=== PATIENT | male | born 1995 | race African-American/Black ===

== ENCOUNTER 2017-09-25 18:25 | Inpatient (IN) | payer OTHER ==
[2017-09-25] MEDS ORDERED: DIPHTH/TETANUS/ACEL PERTUSSIS (BOOSTER) 0.5 ML VIAL/PFS IM ONE (18:32)
[2017-09-25] MEDS ORDERED: ceFAZolin 2 GM PREMIX 50 ML ONE (18:33)
[2017-09-25] MEDS ORDERED: PROPOFOL 1000 MG/100 ML INJ 100 ML ONE (18:36)
[2017-09-25 18:37] VITALS: O2SAT 100
[2017-09-25] MEDS ORDERED: ROCURONIUM INJ 50 MG/5 ML VIAL ONE (18:45)
[2017-09-25 18:51] LABS: AUTOMATED NEUTROPHIL # 13.8 TH/MM3 (1.8-7.7); BASOPHIL % 0.3 % (0.0-2.0); EOSINOPHIL % 0.3 % (0.0-4.0); HEMATOCRIT 43.5 % (39.0-51.0); LYMPH % 13.4 % (9.0-44.0); LYMPHOCYTE # 2.3 TH/MM3 (1.0-4.8); MEAN CELL VOLUME 85.8 FL (80.0-100.0); MEAN CORPUSCULAR HEMOGLOBIN 29.5 PG (27.0-34.0); MEAN CORPUSCULAR HGB CONC 34.4 % (32.0-36.0); MEAN PLATELET VOLUME 8.1 FL (7.0-11.0); MONO % 4.2 % (0.0-8.0); MONOCYTE # 0.7 TH/MM3 (0-0.9); NEUT % 81.8 % (16.0-70.0); PLATELET COUNT 228 TH/MM3 (150-450); RED BLOOD COUNT 5.07 MIL/MM3 (4.50-5.90); RED CELL DISTRIBUTION WIDTH 13.5 % (11.6-17.2); WHITE BLOOD COUNT 16.9 TH/MM3 (4.0-11.0)
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
[2017-09-25] MEDS ORDERED: fentaNYL DRIP 250 ML IV PRN (19:00)
[2017-09-25] MEDS ORDERED: MAGNESIUM HYDROXIDE SUSP 30 ML CUP PO PRN (19:00)
[2017-09-25] MEDS ORDERED: MISCELLANEOUS NURSING INFORMATION XX SCH (19:00)
[2017-09-25] MEDS ORDERED: ONDANSETRON HCL 4 MG/2 ML VIAL IV PUSH PRN (19:00)
[2017-09-25] MEDS ORDERED: CHLORHEXIDINE GLUCONATE 2 % 1 PACK (2 CLOTHS) TOP PRN (19:00)
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
[2017-09-25 19:07] LABS: INTERNATIONAL NORMALIZED RATIO 1.1 RATIO; PROTHROMBIN TIME - PATIENT 11.6 SEC (9.8-11.6)
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
[2017-09-25] MEDS ORDERED: IOHEXOL 350 MG/ML 10 ML VIAL (for RAD DIAG) IVCONTRAST ONE (19:09)
[2017-09-25] MEDS ORDERED: hydrALAZINE HCL 20 MG/ML VIAL ONE (19:19)
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
[2017-09-25 19:30] VITALS: BP 139/63; PULSE 100; RESP 16; TEMP 98.7; O2SAT 100
[2017-09-25] MEDS: SODIUM CHLOR 0.9% 1000 ML INJ 1,000 ML IV SCH (19:30)
[2017-09-25] MEDS: PROPOFOL 1000 MG/100 ML INJ 100 ML IV PRN (19:45)
[2017-09-25 20:00] VITALS: BP 139/63; PULSE 94; RESP 16; TEMP 98.6; O2SAT 100
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
[2017-09-25] MEDS ORDERED: NOREPINEPHRINE 4 MG/4 ML AMP ONE (20:38)
[2017-09-25] MEDS ORDERED: MIDAZOLAM HCL 5 MG/ML VIAL (1 ML) ONE ×2 (21:00→23:19)
[2017-09-25] MEDS ORDERED: NOREPINEPHRINE INJ 4 MG in SODIUM CHLOR 0.9% 250 ML INJ 246 ML IV PRN (21:00)
[2017-09-25] MEDS: DOCUSATE SODIUM 100 MG CAP PO SCH (21:00)
[2017-09-25] MEDS: fentaNYL DRIP 250 ML IV PRN (21:00)
[2017-09-25] MEDS ORDERED: MIDAZOLAM HCL 2 MG/2 ML VIAL IV PUSH ONE (21:00)
[2017-09-25] MEDS ORDERED: TERBUTALINE INJ 1 MG/ML AMP SQ PRN (21:00)
[2017-09-25 21:50] VITALS: O2SAT 100
[2017-09-25 22:00] VITALS: PULSE 85
[2017-09-25] MEDS: levETIRAcetam INJ 500 MG in SODIUM CHLORIDE 0.9% INJ 100 ML IV SCH (22:00)
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
--- NOTE | 2017-09-25 22:25 | RADRPT ---
EXAM DATE/TIME: 09/25/2017 21:49 [facility] COMPARISON: CHEST SINGLE AP, September 25, 2017, 18:33. INDICATIONS : Central line placement MEDICAL HISTORY : None. SURGICAL HISTORY : None. ENCOUNTER: Initial ACUITY: 1 day PAIN SCORE: Non-responsive. LOCATION: Bilateral chest. FINDINGS: Endotracheal tube tip at level the clavicles. Left subclavian line tip overlies the SVC. Enteric tube courses beneath the diaphragm. Tubing and EKG leads overlie the chest. There is a moderate right-ernestina ed pneumothorax extending from base to apex. At the right lung base there is a 1.4 cm of pleural sepa ration and at the right apex approximately 2.5 cm. There is right lower lobe atelectasis. The heart s ize is normal. I do not see a definite pneumothorax on the left. There is consolidation in the left l loretta base. CONCLUSION: Right-sided pneumothorax. Sim Austin MD on September 25, 2017 at 22:22 Board Certified Radiologist. This report was verified electronically.
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
[2017-09-25] MEDS ORDERED: LIDOCAINE 1%/EPINEPHrine 1:100,000 SOLN 30 ML VIAL ONE (23:15)
--- NOTE | 2017-09-25 23:36 | PD.PROCEDR ---
Procedure Note Procedure Procedure: Right chest tube placement Indication: Acute right pneumothorax Details of procedure: Informed consent was obtained from the patient's father after discussion of risks, benefits, alternatives. The patient was positioned with right arm secured in restraint away from sterile field. The lateral chest wall was cleaned with ChloraPrep x4. Regional sterile drapes were applied. 1% lidocaine with epi was used for local anesthesia and injected into the subcutaneous and deep muscle tissues. A 1.5 cm skin incision was made with a scalpel blade. A hemostat was used for blunt dissection. The hemostat was entered into the pleural space superior to the rib with release of air. I explored the wound with my finger. A size 20 Nauruan chest tube was inserted with a Hallie clamp into the pleural cavity with intended direction toward the apex to a depth of 14 cm. 2-0 silk was used to close the wound and to secure the chest tube. A sterile Vaseline gauze dressing was applied. The chest tube was connected to a Pleur-evac drainage system. There was a persistent 2-3+ air leak. There was minimal serosanguineous fluid in the chest tube. Estimated blood loss: < 5mL Complications: None. Stat chest x-ray demonstrates improvement in size of R pneumothorax Dana Bailey MD Sep 25, 2017 23:36
[2017-09-26] VITALS (19 sets, daily range): BP systolic 124–139; BP diastolic 58–68; PULSE 60–80; RESP 16–29; TEMP 98.4–100; O2SAT 95–100
--- NOTE | 2017-09-26 00:04 | RADRPT ---
EXAM DATE/TIME: 09/25/2017 23:46 [facility] COMPARISON: CT THORAX W CONTRAST, September 25, 2017, 19:01. CHEST SINGLE AP, September 25, 2017, 21:49. INDICATIONS : Right sided pneumothorax. MEDICAL HISTORY : None. SURGICAL HISTORY : None. ENCOUNTER: Initial ACUITY: 1 day PAIN SCORE: Non-responsive. LOCATION: Bilateral chest FINDINGS: Interval placement of right chest drainage tube with tip projected in the medial right chest. There has been reduction in the size of the apical pneumothorax to 1.7 cm (previously measured 2.5 cm). Th e lungs are symmetrically aerated without focal infiltrate. ET tube tip well above the braden. Phillip yakov tube traverses the field of view. Left subclavian catheter tip projects over the mid superior ve na cava. The stable fracture midshaft right clavicle. CONCLUSION: Interval placement of right chest drainage tube with reduction in size of right apical pneumothorax 1 .7 cm. Norm Marvin MD on September 26, 2017 at 0:01 Board Certified Radiologist. This report was verified electronically.
[2017-09-26 00:55] LABS: AMORPHOUS SEDIMENT, URINE MOD; BILIRUBIN, URINE NEG (NEG); BLOOD, URINE TRACE (NEG); GLUCOSE,URINE NEG (NEG); KETONE, URINE NEG (NEG); MUCUS URINE FEW /lpf (OCC); NITRITE,URINE NEG (NEG); SQUAMOUS EPITHELIAL CELL URINE <1 /hpf (0-5); URINE COLOR YELLOW (YELLW/STRAW); URINE LEUKOCYTE ESTERASE NEG (NEG)
[2017-09-26] MEDS ORDERED: SODIUM CHLOR 0.9% 1000 ML INJ 2,000 ML IV ONE (03:00)
[2017-09-26] MEDS: PROPOFOL 1000 MG/100 ML INJ 100 ML IV PRN ×3 (03:41→19:43)
[2017-09-26] MEDS: CHLORHEXIDINE GLUCONATE 2 % 1 PACK (2 CLOTHS) TOP SCH (04:00)
[2017-09-26 04:15] LABS: BASOPHIL % 0.3 % (0.0-2.0); HEMATOCRIT 33.6 % (39.0-51.0); HEMOGLOBIN 11.6 GM/DL (13.0-17.0); LYMPH % 10.5 % (9.0-44.0); LYMPHOCYTE # 1.1 TH/MM3 (1.0-4.8); MEAN CORPUSCULAR HEMOGLOBIN 29.3 PG (27.0-34.0); MEAN CORPUSCULAR HGB CONC 34.4 % (32.0-36.0); MEAN PLATELET VOLUME 7.7 FL (7.0-11.0); MONO % 5.4 % (0.0-8.0); MONOCYTE # 0.6 TH/MM3 (0-0.9); NEUT % 83.8 % (16.0-70.0); PLATELET COUNT 161 TH/MM3 (150-450); RED BLOOD COUNT 3.95 MIL/MM3 (4.50-5.90); RED CELL DISTRIBUTION WIDTH 13.2 % (11.6-17.2); WHITE BLOOD COUNT 10.7 TH/MM3 (4.0-11.0)
[2017-09-26 04:37] LABS: BICARBONATE 23.6 MEQ/L (21.0-32.0); CALCIUM 8.2 MG/DL (8.5-10.1); CREATININE 0.86 MG/DL (0.60-1.30)
[2017-09-26] MEDS: SODIUM CHLOR 0.9% 1000 ML INJ 1,000 ML IV SCH ×3 (05:45→21:11)
--- NOTE | 2017-09-26 05:58 | RADRPT ---
EXAM DATE/TIME: 09/26/2017 04:01 [facility] COMPARISON: CHEST SINGLE AP, September 25, 2017, 23:46. INDICATIONS : Respiratory failure, and right sided pneumothorax. MEDICAL HISTORY : None. SURGICAL HISTORY : None. ENCOUNTER: Subsequent ACUITY: 2 days PAIN SCORE: Non-responsive. LOCATION: Bilateral chest FINDINGS: Right chest drainage tube is projected in the medial right mid chest. There are absent lung markings at the right apex, but no definite pleural reflection is identified; this could be due to the supine nature of the film. A residual apical pneumothorax is suspected, but cannot be measured. Patchy il l-defined areas of opacity in the lateral left lung stable in appearance. ET tube and gastric tube u nchanged. CONCLUSION: Absent lung markings at the right apex without definite pleural reflection. A residual pneumothorax is suspected, but cannot be measured. May consider performing an erect view of the chest 4 further e valuation. Norm Marvin MD on September 26, 2017 at 5:55 Board Certified Radiologist. This report was verified electronically.
--- NOTE | 2017-09-26 06:02 | RADRPT ---
EXAM DATE/TIME: 09/26/2017 05:06 [facility] COMPARISON: CT BRAIN W/O CONTRAST, September 25, 2017, 18:55. INDICATIONS : Follow up hemorrhage. RADIATION DOSE: 69.15 CTDIvol (mGy) MEDICAL HISTORY : None SURGICAL HISTORY : None. ENCOUNTER: Subsequent ACUITY: 1 day PAIN SCALE: Non-responsive LOCATION: cranial TECHNIQUE: Multiple contiguous axial images were obtained of the head. Using automated exposure control and adj ustment of the mA and/or kV according to patient size, radiation dose was kept as low as reasonably a chievable to obtain optimal diagnostic quality images. DICOM format image data is available electro nically for review and comparison. FINDINGS: CEREBRUM: Interval placement of a intracranial monitoring electrode with the tip in the mid convexity frontal r egion. There is a collection of extra-axial gas in the nondependent frontal region measuring 7 mm. The 3 punctate hemorrhages in the left frontal white matter are stable in size and appearance when co mpared to yesterday's exam. The largest hemorrhage measures 7 mm. No new hemorrhages seen. The chele tricles are symmetric in size. There is good banerjee-white matter differentiation. No evidence of midl ine shift. POSTERIOR FOSSA: The cerebellum and brainstem are intact. The 4th ventricle is midline. The cerebellopontine angle i s unremarkable. EXTRACRANIAL: The visualized portion of the orbits is intact. SKULL: The calvaria is intact. No evidence of skull fracture. CONCLUSION: 1. The 3 left frontal hemorrhages are stable in size, measuring up to 7 mm. 2. Interval development of pneumocephalus in the non-dependent right frontal extra-axial space probab ly related to interval placement of right ICP device. Norm Marvin MD on September 26, 2017 at 5:58 Board Certified Radiologist. This report was verified electronically.
[2017-09-26] MEDS ORDERED: RESP: ALBUTEROL 2.5 MG/IPRATROPIUM 0.5 MG NEB (PRN) NEB (07:30)
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
[2017-09-26] MEDS: CHLORHEXIDINE 0.12% (ORAL KIT) 15 ML CUP MT SCH ×2 (08:06→21:10)
[2017-09-26] MEDS: DOCUSATE SODIUM 100 MG CAP PO SCH ×2 (08:07→21:08)
[2017-09-26] MEDS: levETIRAcetam INJ 500 MG in SODIUM CHLORIDE 0.9% INJ 100 ML IV SCH ×2 (08:07→21:10)
[2017-09-26] MEDS: FAMOTIDINE 20 MG TAB PO SCH ×2 (08:07→21:08)
[2017-09-26] MEDS ORDERED: RESP: ALBUTEROL 2.5 MG/IPRATROPIUM 0.5 MG NEB (SCH) NEB (10:00)
[2017-09-26] MEDS ORDERED: POTASSIUM CHLOR 40 MEQ PREMIX 100 ML IV PRN (10:30)
[2017-09-26] MEDS ORDERED: MAGNESIUM OXIDE 400 MG TAB PO PRN (10:30)
[2017-09-26] MEDS ORDERED: POTASSIUM CHLOR 20 MEQ PREMIX 100 ML IV PRN ×2 (10:30)
[2017-09-26] MEDS ORDERED: POTASSIUM PHOSPHATE INJ 30 MMOL in SODIUM CHLOR 0.9% 250 ML INJ 250 ML IV PRN (10:30)
[2017-09-26] MEDS ORDERED: POTASSIUM PHOSPHATE MONOBASIC 500 MG TAB PO/TUBE PRN (10:30)
[2017-09-26] MEDS ORDERED: POTASSIUM CHLORIDE 25 MEQ EFFERVESCENT TAB PO PRN (10:30)
[2017-09-26] MEDS ORDERED: GLUCAGON 1 MG/ML VIAL OTHER PRN (10:30)
[2017-09-26] MEDS: INSULIN ASPART SUPPLEMENTAL SCALE SQ SCH ×3 (10:30→22:30)
[2017-09-26] MEDS ORDERED: MAGNESIUM SULFATE INJ 4 GM in SODIUM CHLORIDE 0.9% INJ 92 ML IV PRN (10:30)
[2017-09-26] MEDS ORDERED: POTASSIUM PHOSPHATE MONOBASIC 500 MG TAB PO PRN (10:30)
[2017-09-26] MEDS ORDERED: SODIUM PHOSPHATE INJ 30 MMOL in SODIUM CHLOR 0.9% 250 ML INJ 240 ML IV PRN (10:30)
[2017-09-26] MEDS ORDERED: DEXTROSE 50% IN WATER 50 ML VIAL(D50) IV PUSH PRN (10:30)
[2017-09-26] MEDS ORDERED: MAGNESIUM SULFATE INJ 2 GM in SODIUM CHLORIDE 0.9% INJ 96 ML IV PRN (10:30)
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
[2017-09-26] MEDS: RESP: ALBUTEROL 2.5 MG/IPRATROPIUM 0.5 MG NEB (SCH) NEB ×2 (14:24→20:35)
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
--- NOTE | 2017-09-26 15:04 | RADRPT ---
EXAM DATE/TIME: 09/26/2017 14:19 [facility] COMPARISON: CHEST SINGLE AP, September 26, 2017, 4:01. INDICATIONS : Concern for atelectasis. MEDICAL HISTORY : None. SURGICAL HISTORY : None. ENCOUNTER: Initial ACUITY: 1 day PAIN SCORE: Non-responsive. LOCATION: Bilateral chest FINDINGS: There is atelectasis in the right lower lobe. Left subclavian line tip overlies the SVC. Endotracheal tube tip at the level of the clavicles. Right-sided chest tube is present. Enteric tube courses bene ath the diaphragm. There is a right-sided pneumothorax. CONCLUSION: Right-sided pneumothorax. Right basilar atelectasis. Sim Austin MD on September 26, 2017 at 14:58 Board Certified Radiologist. This report was verified electronically.
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
[2017-09-26] MEDS: fentaNYL DRIP 250 ML IV PRN (20:18)
[2017-09-26] MEDS: ACETAMINOPHEN 325 MG TAB PO PRN (23:25)
[2017-09-27] VITALS (21 sets, daily range): BP systolic 111–140; BP diastolic 52–65; PULSE 78–115; RESP 16–18; TEMP 99.3–101.7; O2SAT 92–100
[2017-09-27] MEDS: POTASSIUM CHLOR 40 MEQ PREMIX 100 ML IV PRN ×2 (00:25→02:30)
[2017-09-27] MEDS: PROPOFOL 1000 MG/100 ML INJ 100 ML IV PRN ×4 (01:20→15:33)
[2017-09-27] MEDS: CHLORHEXIDINE GLUCONATE 2 % 1 PACK (2 CLOTHS) TOP SCH (03:03)
[2017-09-27] MEDS: RESP: ALBUTEROL 2.5 MG/IPRATROPIUM 0.5 MG NEB (SCH) NEB ×4 (03:21→19:52)
[2017-09-27 04:30] LABS: AUTOMATED NEUTROPHIL # 8.9 TH/MM3 (1.8-7.7); BASOPHIL % 0.4 % (0.0-2.0); EOSINOPHIL # 0.1 TH/MM3 (0-0.4); EOSINOPHIL % 0.8 % (0.0-4.0); HEMATOCRIT 32.6 % (39.0-51.0); HEMOGLOBIN 11.3 GM/DL (13.0-17.0); LYMPH % 8.3 % (9.0-44.0); LYMPHOCYTE # 0.9 TH/MM3 (1.0-4.8); MEAN CELL VOLUME 84.4 FL (80.0-100.0); MEAN CORPUSCULAR HEMOGLOBIN 29.3 PG (27.0-34.0); MEAN CORPUSCULAR HGB CONC 34.8 % (32.0-36.0); MEAN PLATELET VOLUME 7.9 FL (7.0-11.0); MONO % 4.5 % (0.0-8.0); MONOCYTE # 0.5 TH/MM3 (0-0.9); PLATELET COUNT 138 TH/MM3 (150-450); RED BLOOD COUNT 3.87 MIL/MM3 (4.50-5.90); RED CELL DISTRIBUTION WIDTH 13.2 % (11.6-17.2); WHITE BLOOD COUNT 10.4 TH/MM3 (4.0-11.0)
[2017-09-27] MEDS: INSULIN ASPART SUPPLEMENTAL SCALE SQ SCH ×4 (04:30→22:30)
[2017-09-27 05:00] LABS: ALBUMIN 2.9 GM/DL (3.4-5.0); AST (GOT) 44 U/L (15-37); BICARBONATE 22.1 MEQ/L (21.0-32.0); BLOOD UREA NITROGEN 7 MG/DL (7-18); CALCIUM 7.8 MG/DL (8.5-10.1); CHLORIDE 109 MEQ/L (98-107); CREATININE 0.87 MG/DL (0.60-1.30); GLOMERULAR FILTRATION RATE 133 ML/MIN (>89); GLUCOSE,RANDOM 87 MG/DL (74-106); MAGNESIUM 1.4 MG/DL (1.5-2.5); SODIUM (NA) 140 MEQ/L (136-145)
[2017-09-27 05:02] LABS: ALT (GPT) 25 U/L (12-78)
[2017-09-27 05:03] LABS: ALKALINE PHOSPHATASE 92 U/L (45-117); TOTAL BILIRUBIN ADULT 0.8 MG/DL (0.2-1.0); TOTAL PROTEIN 6.3 GM/DL (6.4-8.2)
[2017-09-27] MEDS ORDERED: Vancomycin Consult Pharmacy 1 EA OTHER SCH (05:30)
--- NOTE | 2017-09-27 05:36 | RADRPT ---
EXAM DATE/TIME: 09/27/2017 04:43 [facility] COMPARISON: CT THORAX W CONTRAST, September 25, 2017, 19:01. CHEST SINGLE AP, September 26, 2017, 4:01. CHEST SINGLE AP , September 26, 2017, 14:19. INDICATIONS : Short of breath, follow up right side pneumothorax MEDICAL HISTORY : pneumothorax, brain hemorrhage SURGICAL HISTORY : None. ENCOUNTER: Subsequent ACUITY: 2 days PAIN SCORE: Non-responsive. LOCATION: Bilateral chest FINDINGS: Portable AP view of the chest demonstrates a normal-sized cardiac silhouette. Nasogastric tube, ETT, and left subclavian central line remain present. Right chest tube is present. No right pneumothorax i s visualized. There is airspace consolidation in the right lower lung zone, increased from the prior study. CONCLUSION: 1. No pneumothorax is visualized. 2. Increased right lower lung zone airspace consolidation. Gamaliel Henry MD on September 27, 2017 at 5:33 Board Certified Radiologist. This report was verified electronically.
[2017-09-27] MEDS: SODIUM CHLOR 0.9% 1000 ML INJ 1,000 ML IV SCH ×3 (05:45→21:34)
[2017-09-27] MEDS: PIPERACIL-TAZO 4.5 GM PREMIX 100 ML IV SCH ×3 (06:09→17:51)
[2017-09-27] MEDS ORDERED: VANCOMYCIN 1,500 MG/NS 500 ML IV ONE ×2 (08:00)
[2017-09-27] MEDS: CHLORHEXIDINE 0.12% (ORAL KIT) 15 ML CUP MT SCH ×2 (08:00→21:34)
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
[2017-09-27] MEDS: levETIRAcetam INJ 500 MG in SODIUM CHLORIDE 0.9% INJ 100 ML IV SCH ×2 (09:05→21:34)
[2017-09-27] MEDS: DOCUSATE SODIUM 100 MG CAP PO SCH ×2 (09:08→21:34)
[2017-09-27] MEDS: FAMOTIDINE 20 MG TAB PO SCH ×2 (09:08→21:34)
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
[2017-09-27] MEDS ORDERED: ROCURONIUM INJ 50 MG/5 ML VIAL ONE (11:11)
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
[2017-09-27 13:59] LABS: BILIRUBIN, URINE NEG (NEG); BLOOD, URINE NEG (NEG); GLUCOSE,URINE NEG (NEG); KETONE, URINE NEG (NEG); MUCUS URINE FEW /lpf (OCC); NITRITE,URINE NEG (NEG); URINE COLOR LIGHT-YELLOW (YELLW/STRAW); URINE LEUKOCYTE ESTERASE NEG (NEG)
[2017-09-27] MEDS: fentaNYL DRIP 250 ML IV PRN (17:00)
[2017-09-27] MEDS: ACETAMINOPHEN 325 MG TAB PO PRN (17:51)
[2017-09-27] MEDS: VANCOMYCIN INJ 1,500 MG in SODIUM CHLORID 0.9% 500 ML INJ 500 ML IV SCH (23:20)
[2017-09-28] VITALS (18 sets, daily range): BP systolic 102–134; BP diastolic 53–67; PULSE 70–98; RESP 12–16; TEMP 99.3–100.2; O2SAT 94–100
[2017-09-28] MEDS: PIPERACIL-TAZO 4.5 GM PREMIX 100 ML IV SCH ×4 (01:08→17:34)
[2017-09-28] MEDS: SODIUM CHLOR 0.9% 1000 ML INJ 1,000 ML IV SCH (03:00)
[2017-09-28] MEDS: RESP: ALBUTEROL 2.5 MG/IPRATROPIUM 0.5 MG NEB (SCH) NEB ×4 (03:29→21:22)
[2017-09-28] MEDS: CHLORHEXIDINE GLUCONATE 2 % 1 PACK (2 CLOTHS) TOP SCH (03:58)
[2017-09-28] MEDS: PROPOFOL 1000 MG/100 ML INJ 100 ML IV PRN (04:05)
[2017-09-28] MEDS: INSULIN ASPART SUPPLEMENTAL SCALE SQ SCH ×4 (04:30→22:30)
[2017-09-28 04:31] LABS: AUTOMATED NEUTROPHIL # 11.2 TH/MM3 (1.8-7.7); BASOPHIL # 0.1 TH/MM3 (0-0.2); BASOPHIL % 0.5 % (0.0-2.0); EOSINOPHIL # 0.3 TH/MM3 (0-0.4); EOSINOPHIL % 2.3 % (0.0-4.0); HEMATOCRIT 29.4 % (39.0-51.0); HEMOGLOBIN 10.1 GM/DL (13.0-17.0); LYMPH % 6.2 % (9.0-44.0); LYMPHOCYTE # 0.8 TH/MM3 (1.0-4.8); MEAN CELL VOLUME 84.8 FL (80.0-100.0); MEAN CORPUSCULAR HEMOGLOBIN 29.2 PG (27.0-34.0); MEAN CORPUSCULAR HGB CONC 34.4 % (32.0-36.0); MEAN PLATELET VOLUME 8.3 FL (7.0-11.0); MONO % 3.7 % (0.0-8.0); MONOCYTE # 0.5 TH/MM3 (0-0.9); NEUT % 87.3 % (16.0-70.0); PLATELET COUNT 131 TH/MM3 (150-450); RED BLOOD COUNT 3.46 MIL/MM3 (4.50-5.90); RED CELL DISTRIBUTION WIDTH 13.1 % (11.6-17.2); WHITE BLOOD COUNT 12.8 TH/MM3 (4.0-11.0)
[2017-09-28 04:47] LABS: ALBUMIN 2.4 GM/DL (3.4-5.0); ALT (GPT) 23 U/L (12-78); AST (GOT) 52 U/L (15-37); BICARBONATE 26.6 MEQ/L (21.0-32.0); BLOOD UREA NITROGEN 8 MG/DL (7-18); CALCIUM 7.9 MG/DL (8.5-10.1); CHLORIDE 110 MEQ/L (98-107); CREATININE 0.89 MG/DL (0.60-1.30); GLOMERULAR FILTRATION RATE 130 ML/MIN (>89); GLUCOSE,RANDOM 92 MG/DL (74-106); SODIUM (NA) 142 MEQ/L (136-145)
[2017-09-28 04:48] LABS: ALKALINE PHOSPHATASE 82 U/L (45-117); TOTAL BILIRUBIN ADULT 1.1 MG/DL (0.2-1.0); TOTAL PROTEIN 6.1 GM/DL (6.4-8.2)
--- NOTE | 2017-09-28 05:06 | RADRPT ---
EXAM DATE/TIME: 09/28/2017 03:47 [facility] COMPARISON: CHEST SINGLE AP, September 26, 2017, 14:19. CHEST SINGLE AP, September 27, 2017, 4:43. INDICATIONS : Short of breath. MEDICAL HISTORY : pneumothorax, brain hemorrhage. SURGICAL HISTORY : None. ENCOUNTER: Subsequent ACUITY: 3 days PAIN SCORE: Non-responsive. LOCATION: Bilateral chest FINDINGS: Portable AP view of the chest demonstrates a normal-sized cardiac silhouette. ETT, left subclavian ce ntral line, and nasogastric tube remain present. EKG lines overlie the patient. Right chest tube lora ins present. There is airspace consolidation in the right lower lung zone, improved from the prior ex am. A tiny right apical pneumothorax is visualized. Left lung demonstrates no acute finding. CONCLUSION: 1. A tiny right apical pneumothorax is visualized. 2. Improvement in the right lower lung zone airspace consolidation. Gamaliel Henry MD on September 28, 2017 at 5:03 Board Certified Radiologist. This report was verified electronically.
--- NOTE | 2017-09-28 07:46 | RADRPT ---
EXAM DATE/TIME: 09/27/2017 22:12 [place] COMPARISON: No previous studies available for comparison. INDICATIONS : Pain in right knee. MEDICAL HISTORY : None. SURGICAL HISTORY : Vented, [place] placed and removed. ENCOUNTER: Initial ACUITY: 3 day PAIN SCORE: Nonresponsive. LOCATION: Right knee. TECHNIQUE: Multiplanar, multisequence MRI examination was performed without contrast. FINDINGS: CRUCIATE LIGAMENTS: Increased signal intensity with poor fiber delineation and change in orientation of the ACL is noted. The PCL has a lax appearance and demonstrates internal signal intensity. The PCL is otherwise intact . MENISCI: Medial and lateral menisci are intact. COLLATERAL LIGAMENTS: Lateral collateral ligament complex injury is noted. There is an avulsion fracture of the fibular tip which includes the conjoined tendon incorporated the biceps femoris tendon and fibular collateral li gament. The anterolateral ligament is not clearly defined and may be torn as well. The medial collateral ligament appears intact. BONE/CARTILAGE: Focal bone marrow edema is identified along the medial femoral epicondyle articulating surfaces are w ell preserved without evidence of articular cartilage damage or depression. MISCELLANEOUS: Small to moderate size effusion is seen along the medial aspect of the joint. CONCLUSION: 1. Lateral collateral ligament complex injury with fibular avulsion of the conjoined tendon and poor delineation of the anterolateral ligament characteristic of a Segond injury. 2. Severe strain and suspected at least partial tear of the anterior cruciate ligament. 3. Medial femoral epicondyle bone bruise 4. [id number] joint effusion. 5. Intact menisci and articulating cartilage. Daniel Hernandez MD on September 28, 2017 at 7:23 Board Certified Radiologist. This report was verified electronically.
[2017-09-28] MEDS: CHLORHEXIDINE 0.12% (ORAL KIT) 15 ML CUP MT SCH ×2 (07:51→20:00)
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
[2017-09-28] MEDS: DOCUSATE SODIUM 100 MG CAP PO SCH ×2 (09:04→21:00)
[2017-09-28] MEDS: LACTULOSE SYRUP 20 GM/30 ML CUP PO SCH (09:04)
[2017-09-28] MEDS: FAMOTIDINE 20 MG TAB PO SCH ×2 (09:04→21:00)
[2017-09-28] MEDS: levETIRAcetam INJ 500 MG in SODIUM CHLORIDE 0.9% INJ 100 ML IV SCH (09:05)
[2017-09-28] MEDS: VANCOMYCIN INJ 1,500 MG in SODIUM CHLORID 0.9% 500 ML INJ 500 ML IV SCH (09:05)
[2017-09-28] MEDS: ACETAMINOPHEN 325 MG TAB PO PRN (12:36)
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
[2017-09-28] MEDS: MORPHINE SULFATE 2 MG/ML INJ IV PUSH PRN ×2 (14:04→17:34)
[2017-09-28] MEDS ORDERED: PHARMACY ORDERED LAB ONE (20:45)
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
[2017-09-29] VITALS (14 sets, daily range): BP systolic 125–146; BP diastolic 60–73; PULSE 70–100; RESP 14–20; TEMP 98.1–99.7; O2SAT 99–100
[2017-09-29] MEDS: PIPERACIL-TAZO 4.5 GM PREMIX 100 ML IV SCH ×3 (00:16→12:36)
[2017-09-29] MEDS: levETIRAcetam INJ 500 MG in SODIUM CHLORIDE 0.9% INJ 100 ML IV SCH ×3 (00:17→20:57)
[2017-09-29] MEDS: MORPHINE SULFATE 2 MG/ML INJ IV PUSH PRN ×5 (01:52→21:01)
[2017-09-29] MEDS: CHLORHEXIDINE GLUCONATE 2 % 1 PACK (2 CLOTHS) TOP SCH (04:00)
[2017-09-29] MEDS: INSULIN ASPART SUPPLEMENTAL SCALE SQ SCH ×4 (04:30→21:04)
[2017-09-29] MEDS: RESP: ALBUTEROL 2.5 MG/IPRATROPIUM 0.5 MG NEB (SCH) NEB ×4 (04:45→20:40)
[2017-09-29 05:27] LABS: AUTOMATED NEUTROPHIL # 11.4 TH/MM3 (1.8-7.7); BASOPHIL # 0.1 TH/MM3 (0-0.2); BASOPHIL % 0.5 % (0.0-2.0); EOSINOPHIL # 0.5 TH/MM3 (0-0.4); EOSINOPHIL % 3.6 % (0.0-4.0); HEMATOCRIT 27.8 % (39.0-51.0); HEMOGLOBIN 9.5 GM/DL (13.0-17.0); LYMPH % 5.5 % (9.0-44.0); LYMPHOCYTE # 0.7 TH/MM3 (1.0-4.8); MEAN CORPUSCULAR HEMOGLOBIN 29.1 PG (27.0-34.0); MEAN CORPUSCULAR HGB CONC 34.3 % (32.0-36.0); MONO % 4.3 % (0.0-8.0); MONOCYTE # 0.6 TH/MM3 (0-0.9); NEUT % 86.1 % (16.0-70.0); PLATELET COUNT 131 TH/MM3 (150-450); RED BLOOD COUNT 3.27 MIL/MM3 (4.50-5.90); RED CELL DISTRIBUTION WIDTH 13.3 % (11.6-17.2); WHITE BLOOD COUNT 13.3 TH/MM3 (4.0-11.0)
[2017-09-29 06:06] LABS: ALBUMIN 2.3 GM/DL (3.4-5.0); ALT (GPT) 43 U/L (12-78); AST (GOT) 77 U/L (15-37); BICARBONATE 27.3 MEQ/L (21.0-32.0); BLOOD UREA NITROGEN 7 MG/DL (7-18); CALCIUM 8.2 MG/DL (8.5-10.1); CHLORIDE 107 MEQ/L (98-107); CREATININE 0.84 MG/DL (0.60-1.30); GLOMERULAR FILTRATION RATE 138 ML/MIN (>89); GLUCOSE,RANDOM 69 MG/DL (74-106); SODIUM (NA) 142 MEQ/L (136-145)
[2017-09-29 06:09] LABS: ALKALINE PHOSPHATASE 95 U/L (45-117); TOTAL BILIRUBIN ADULT 1.2 MG/DL (0.2-1.0); TOTAL PROTEIN 6.5 GM/DL (6.4-8.2)
--- NOTE | 2017-09-29 06:27 | RADRPT ---
EXAM DATE/TIME: 09/29/2017 04:46 [facility] COMPARISON: CHEST SINGLE AP, September 28, 2017, 3:47. INDICATIONS : Shortness of breath. MEDICAL HISTORY : None. SURGICAL HISTORY : None. ENCOUNTER: Subsequent ACUITY: 4 - 6 days PAIN SCORE: Non-responsive. LOCATION: Bilateral chest FINDINGS: Portable AP view of the chest demonstrates a normal-sized cardiac silhouette. Left subclavian central line remains present. The nasogastric tube and endotracheal tube have been removed. Right chest tube is in place. There is increased right lower lung zone airspace consolidation and mild increased airs pace opacity at the left lung base. No pleural effusion is appreciated. Right clavicle remains fractu red with supraclavicular subcutaneous emphysema. CONCLUSION: 1. Increased right lower lung zone airspace consolidation and new atelectasis versus consolidation at the left lung base. 2. Right chest tube remains present and no pneumothorax is seen. Gamaliel Henry MD on September 29, 2017 at 6:24 Board Certified Radiologist. This report was verified electronically.
[2017-09-29] MEDS: CHLORHEXIDINE 0.12% (ORAL KIT) 15 ML CUP MT SCH (08:00)
[2017-09-29] MEDS: MAGNESIUM HYDROXIDE SUSP 30 ML CUP PO SCH ×2 (09:00→20:57)
[2017-09-29] MEDS: LACTULOSE SYRUP 20 GM/30 ML CUP PO SCH (09:00)
[2017-09-29] MEDS: DOCUSATE SODIUM 100 MG CAP PO SCH ×2 (09:00→20:57)
[2017-09-29] MEDS: FAMOTIDINE 20 MG TAB PO SCH ×2 (09:00→20:57)
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
[2017-09-29] MEDS: ACETAMINOPHEN/HYDROcodone 325 MG/7.5 MG TAB PO PRN ×2 (16:47→19:02)
--- NOTE | 2017-09-29 18:28 | RADRPT ---
EXAM DATE/TIME: 09/29/2017 17:50 [facility] COMPARISON: CHEST SINGLE AP, September 29, 2017, 4:46. INDICATIONS : Chest tube removal. MEDICAL HISTORY : None. SURGICAL HISTORY : None. ENCOUNTER: Initial ACUITY: 1 day PAIN SCORE: 3/10 LOCATION: Right chest FINDINGS: Interval removal of left central line and right chest drainage tube. There is persisting consolidati on in the right middle lobe with sharp interface at the minor fissure and some loss of delineation of the lateral right hemidiaphragm. There is a apical pneumothorax on the right side measuring 1.9 cm. The left lung is clear. The heart is normal in size. Stable fracture right mid clavicle.. CONCLUSION: 1. 1.9 cm apical pneumothorax status post removal of right chest drainage tube. 2. Increasing consolidative infiltrates in the right middle lobe. Norm Marvin MD on September 29, 2017 at 18:24 Board Certified Radiologist. This report was verified electronically.
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
[2017-09-29] MEDS: SODIUM CHLORIDE 0.9% FLUSH 10 ML FLUSH IV FLUSH PRN (20:57)
[2017-09-30] VITALS (7 sets, daily range): BP systolic 118–142; BP diastolic 56–82; PULSE 68–92; RESP 17–23; TEMP 98–99.6; O2SAT 97–99
[2017-09-30] MEDS: RESP: ALBUTEROL 2.5 MG/IPRATROPIUM 0.5 MG NEB (SCH) NEB ×2 (03:14→10:15)
[2017-09-30] MEDS: ACETAMINOPHEN/HYDROcodone 325 MG/5 MG TAB PO PRN ×2 (03:43→13:55)
[2017-09-30] MEDS: INSULIN ASPART SUPPLEMENTAL SCALE SQ SCH ×4 (03:49→21:46)
[2017-09-30 04:14] LABS: AUTOMATED NEUTROPHIL # 6.8 TH/MM3 (1.8-7.7); BASOPHIL % 0.5 % (0.0-2.0); EOSINOPHIL # 0.4 TH/MM3 (0-0.4); EOSINOPHIL % 4.3 % (0.0-4.0); HEMATOCRIT 26.4 % (39.0-51.0); HEMOGLOBIN 9.4 GM/DL (13.0-17.0); LYMPH % 8.8 % (9.0-44.0); LYMPHOCYTE # 0.8 TH/MM3 (1.0-4.8); MEAN CELL VOLUME 83.7 FL (80.0-100.0); MEAN CORPUSCULAR HEMOGLOBIN 29.8 PG (27.0-34.0); MEAN CORPUSCULAR HGB CONC 35.6 % (32.0-36.0); MEAN PLATELET VOLUME 8.1 FL (7.0-11.0); MONO % 7.9 % (0.0-8.0); MONOCYTE # 0.7 TH/MM3 (0-0.9); NEUT % 78.5 % (16.0-70.0); PLATELET COUNT 191 TH/MM3 (150-450); RED BLOOD COUNT 3.15 MIL/MM3 (4.50-5.90); RED CELL DISTRIBUTION WIDTH 13.2 % (11.6-17.2); WHITE BLOOD COUNT 8.7 TH/MM3 (4.0-11.0)
[2017-09-30 04:30] LABS: ALBUMIN 2.5 GM/DL (3.4-5.0); ALT (GPT) 39 U/L (12-78); AST (GOT) 67 U/L (15-37); BICARBONATE 28.5 MEQ/L (21.0-32.0); BLOOD UREA NITROGEN 8 MG/DL (7-18); CALCIUM 8.3 MG/DL (8.5-10.1); CHLORIDE 104 MEQ/L (98-107); CREATININE 0.73 MG/DL (0.60-1.30); GLOMERULAR FILTRATION RATE 163 ML/MIN (>89); GLUCOSE,RANDOM 89 MG/DL (74-106); SODIUM (NA) 140 MEQ/L (136-145)
[2017-09-30 04:32] LABS: ALKALINE PHOSPHATASE 88 U/L (45-117); TOTAL BILIRUBIN ADULT 1.2 MG/DL (0.2-1.0)
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
[2017-09-30] MEDS: FAMOTIDINE 20 MG TAB PO SCH ×2 (09:16→21:44)
[2017-09-30] MEDS: DOCUSATE SODIUM 100 MG CAP PO SCH ×2 (09:16→21:00)
[2017-09-30] MEDS: LACTULOSE SYRUP 20 GM/30 ML CUP PO SCH (09:18)
[2017-09-30] MEDS: MAGNESIUM HYDROXIDE SUSP 30 ML CUP PO SCH ×2 (09:18→21:00)
[2017-09-30] MEDS: levETIRAcetam INJ 500 MG in SODIUM CHLORIDE 0.9% INJ 100 ML IV SCH ×2 (09:19→21:46)
[2017-09-30] MEDS: SODIUM CHLORIDE 0.9% FLUSH 10 ML FLUSH IV FLUSH PRN (09:21)
[2017-09-30] MEDS ORDERED: WHEEMIS3 (09:52)
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
[2017-09-30] MEDS ORDERED: WALKER/FOLDING1 MIS (14:29)
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
[2017-09-30] MEDS: ACETAMINOPHEN/HYDROcodone 325 MG/7.5 MG TAB PO PRN (21:46)
[2017-10-01] VITALS: BP 135/68; PULSE 67; RESP 18; TEMP 99; O2SAT 98
[2017-10-01 04:00] VITALS: BP 150/64; PULSE 63; RESP 16; TEMP 97.8; O2SAT 99
[2017-10-01] MEDS: INSULIN ASPART SUPPLEMENTAL SCALE SQ SCH (04:28)
[2017-10-01] MEDS: ACETAMINOPHEN/HYDROcodone 325 MG/7.5 MG TAB PO PRN ×2 (06:22→20:37)
[2017-10-01 08:00] VITALS: BP 118/58; PULSE 66; PULSE 88; RESP 18; TEMP 98.5; O2SAT 100
[2017-10-01] MEDS: DOCUSATE SODIUM 100 MG CAP PO SCH ×2 (08:23→20:37)
[2017-10-01] MEDS: MAGNESIUM HYDROXIDE SUSP 30 ML CUP PO SCH ×2 (08:23→20:38)
[2017-10-01] MEDS: LACTULOSE SYRUP 20 GM/30 ML CUP PO SCH (08:23)
[2017-10-01] MEDS: FAMOTIDINE 20 MG TAB PO SCH ×2 (09:58→20:36)
[2017-10-01] MEDS: levETIRAcetam 500 MG TAB PO SCH ×2 (09:58→20:36)
[2017-10-01] MEDS: ENOXAPARIN SODIUM 30 MG/0.3 ML SYRINGE SQ SCH ×2 (09:58→22:27)
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
[2017-10-01] MEDS: ACETAMINOPHEN/HYDROcodone 325 MG/5 MG TAB PO PRN (10:49)
[2017-10-01 12:00] VITALS: BP 132/62; PULSE 61; PULSE 88; RESP 22; TEMP 99.1; O2SAT 100
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
[2017-10-01 16:00] VITALS: BP 97/48; PULSE 74; RESP 20; TEMP 98.5; O2SAT 100
[2017-10-01 20:05] VITALS: BP 144/72; PULSE 69; RESP 17; TEMP 99.9; O2SAT 97
[2017-10-02] VITALS (9 sets, daily range): BP systolic 120–135; BP diastolic 69–89; PULSE 63–82; RESP 16–18; TEMP 97.1–98.5; O2SAT 96–100
[2017-10-02] MEDS: ACETAMINOPHEN/HYDROcodone 325 MG/7.5 MG TAB PO PRN ×2 (04:48→14:40)
[2017-10-02] MEDS ORDERED: MAGN30S PO (08:06)
[2017-10-02] MEDS ORDERED: DOCU1CAP39 PO (08:06)
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
[2017-10-02] MEDS: FAMOTIDINE 20 MG TAB PO SCH ×2 (08:47→21:01)
[2017-10-02] MEDS: ACETAMINOPHEN/HYDROcodone 325 MG/5 MG TAB PO PRN ×2 (08:47→21:01)
[2017-10-02] MEDS: levETIRAcetam 500 MG TAB PO SCH ×2 (08:47→21:01)
[2017-10-02] MEDS: DOCUSATE SODIUM 100 MG CAP PO SCH ×2 (08:47→21:01)
[2017-10-02] MEDS: LACTULOSE SYRUP 20 GM/30 ML CUP PO SCH (08:51)
[2017-10-02] MEDS: MAGNESIUM HYDROXIDE SUSP 30 ML CUP PO SCH ×2 (08:51→21:01)
[2017-10-02] MEDS: ENOXAPARIN SODIUM 30 MG/0.3 ML SYRINGE SQ SCH ×2 (10:36→21:02)
[2017-10-02] MEDS ORDERED: HYDR-3516 PO (10:44)
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
[2017-10-03] MEDS: ACETAMINOPHEN/HYDROcodone 325 MG/7.5 MG TAB PO PRN ×3 (07:42→20:41)
[2017-10-03] MEDS: levETIRAcetam 500 MG TAB PO SCH (07:43)
[2017-10-03] MEDS: FAMOTIDINE 20 MG TAB PO SCH ×2 (07:43→20:40)
[2017-10-03] MEDS: MAGNESIUM HYDROXIDE SUSP 30 ML CUP PO SCH ×2 (07:43→20:41)
[2017-10-03] MEDS: LACTULOSE SYRUP 20 GM/30 ML CUP PO SCH (07:43)
[2017-10-03] MEDS: DOCUSATE SODIUM 100 MG CAP PO SCH ×2 (07:43→20:41)
[2017-10-03 08:00] VITALS: BP 140/95; PULSE 80; RESP 18; TEMP 98.1; O2SAT 96
[2017-10-03] MEDS: ENOXAPARIN SODIUM 30 MG/0.3 ML SYRINGE SQ SCH ×2 (11:00→20:41)
[2017-10-03 12:03] VITALS: BP 141/73; PULSE 72; RESP 18; TEMP 96.9; O2SAT 99
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
[2017-10-03 16:00] VITALS: BP 109/66; PULSE 71; RESP 17; TEMP 97.2; O2SAT 98
[2017-10-03 20:20] VITALS: BP 132/60; PULSE 70; RESP 16; TEMP 98.8; O2SAT 96
[2017-10-03] MEDS: SODIUM CHLORIDE 0.9% FLUSH 10 ML FLUSH IV FLUSH PRN (20:41)
[2017-10-04 01:10] VITALS: BP 130/67; PULSE 76; RESP 16; TEMP 97.9; O2SAT 96
[2017-10-04 08:00] VITALS: BP 130/62; PULSE 69; RESP 17; TEMP 97.7; O2SAT 97
[2017-10-04] MEDS: MAGNESIUM HYDROXIDE SUSP 30 ML CUP PO SCH (09:00)
[2017-10-04] MEDS: LACTULOSE SYRUP 20 GM/30 ML CUP PO SCH (09:00)
[2017-10-04] MEDS: DOCUSATE SODIUM 100 MG CAP PO SCH (09:00)
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
[2017-10-04] MEDS: ACETAMINOPHEN/HYDROcodone 325 MG/7.5 MG TAB PO PRN (11:53)
[2017-10-04] MEDS: ENOXAPARIN SODIUM 30 MG/0.3 ML SYRINGE SQ SCH (11:54)
[2017-10-04] MEDS: FAMOTIDINE 20 MG TAB PO SCH (11:54)
[2017-10-04 12:00] VITALS: BP 125/61; PULSE 73; RESP 17; TEMP 98.4; O2SAT 94
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
[2017-10-04 16:00] VITALS: BP 124/61; PULSE 75; RESP 18; TEMP 98.2; O2SAT 96
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
== END 2017-10-04 16:19 | disposition home or self-care (01) | DRG 955 ==
LOC: NEPI 18:25 → EDBD 18:59 → NEDA 18:59 → N03A 19:15 → N03B 09-29 20:37 → N06B 10-01 18:01
PROVIDERS: ADMIT Surgery; ATTEND Surgery
PROC: 00H032Z Insertion of Monitoring Device into Brain, Percutaneous Approach (ICD-10-PCS; principal; 2017-09-25)
PROC: 4A103BD Monitoring of Intracranial Pressure, Percutaneous Approach (ICD-10-PCS; 2017-09-25)
PROC: 0BH17EZ Insertion of Endotracheal Airway into Trachea, Via Natural or Artificial Opening (ICD-10-PCS; 2017-09-25)
PROC: 5A1945Z Respiratory Ventilation, 24-96 Consecutive Hours (ICD-10-PCS; 2017-09-25)
PROC: 05H633Z Insertion of Infusion Device into Left Subclavian Vein, Percutaneous Approach (ICD-10-PCS; 2017-09-25)
PROC: 0W9930Z Drainage of Right Pleural Cavity with Drainage Device, Percutaneous Approach (ICD-10-PCS; 2017-09-25)
PROC: 0T9B70Z Drainage of Bladder with Drainage Device, Via Natural or Artificial Opening (ICD-10-PCS; 2017-09-25)
DX: S06.369A Traumatic hemorrhage of cerebrum, unspecified, with loss of consciousness of unspecified duration, initial encounter (principal); S27.322A Contusion of lung, bilateral, initial encounter; S27.0XXA Traumatic pneumothorax, initial encounter; J96.01 Acute respiratory failure with hypoxia; J69.0 Pneumonitis due to inhalation of food and vomit; A41.9 Sepsis, unspecified organism; S27.331A Laceration of lung, unilateral, initial encounter; J98.11 Atelectasis; I95.9 Hypotension, unspecified; S01.01XA Laceration without foreign body of scalp, initial encounter; S82.831A Other fracture of upper and lower end of right fibula, initial encounter for closed fracture; S42.134A Nondisplaced fracture of coracoid process, right shoulder, initial encounter for closed fracture; S42.024A Nondisplaced fracture of shaft of right clavicle, initial encounter for closed fracture; F12.90 Cannabis use, unspecified, uncomplicated; F17.210 Nicotine dependence, cigarettes, uncomplicated; V47.5XXA Car driver injured in collision with fixed or stationary object in traffic accident, initial encounter; Y92.410 Unspecified street and highway as the place of occurrence of the external cause; Y93.89 Activity, other specified; S90.811A Abrasion, right foot, initial encounter; S60.811A Abrasion of right wrist, initial encounter; Z83.3 Family history of diabetes mellitus; R73.9 Hyperglycemia, unspecified; M25.461 Effusion, right knee; S83.511A Sprain of anterior cruciate ligament of right knee, initial encounter; F01.50 Vascular dementia, unspecified severity, without behavioral disturbance, psychotic disturbance, mood disturbance, and anxiety
CPT/HCPCS: 31500; 36556; 36620; 61210; 70450; 71045; 71260; 72125; 72170; 73564; 73721; 74177; 76937; 80048; 80053; 81001; 82805; 82948; 83735; 84132; 85025; 85610; 85730; 86850; 86900; 86901; 87040; 87070; 87205; 87641; 90471; 90715; 94002; 94003; 94150; 94640; 94664; 94667; 94668; 94770; 96374; 96375; 99291; G0390; J0360; J0690; J1650; J1953; J2250; J2270; J2543; J3010; J3370; J3480; J7030; J7040; L1830; Q9967